=== PATIENT | female | born 1965 | race Caucasian/White ===

== ENCOUNTER 2017-08-15 15:53 | Emergency (ER) | payer MEDICAID ==
[2017-08-15 16:04] VITALS: TEMP 98.1
--- NOTE | 2017-08-15 16:13 | C.PDOC ---
History Of Present Illness 51 year old female presenting to the ED complaining of left sided back pain radiating to her hip and leg for one week. Patient states she has had similar symptoms in the past. She notes pain is worsened with movement, standing up, and walking. She reports she takes advil but only feels minimal relief. Patient denies any fall, injury, weakness, numbness, or tingling. Time Seen by Provider: 08/15/17 16:06 Chief Complaint (Nursing): Lower Extremity Problem/Injury History Per: Patient History/Exam Limitations: no limitations Onset/Duration Of Symptoms: Days Current Symptoms Are (Timing): Still Present Past Medical History Reviewed: Historical Data, Nursing Documentation, Vital Signs Vital Signs: Last Vital Signs Temp 98.1 F 08/15/17 16:02 Pulse 72 08/15/17 16:42 Resp 16 08/15/17 16:42 BP 131/72 08/15/17 16:42 Pulse Ox 98 08/15/17 16:42 - Medical History PMH: No Chronic Diseases Other Surgeries: Hx of surgeries Family History: States: No Known Family Hx - Social History Hx Tobacco Use: No Hx Alcohol Use: No Hx Substance Use: No - Immunization History Hx Tetanus Toxoid Vaccination: No Hx Influenza Vaccination: No Hx Pneumococcal Vaccination: No Review Of Systems Except As Marked, All Systems Reviewed And Found Negative. Musculoskeletal: Positive for: Back Pain (Left sided pain), Leg Pain (Left leg ) , Other (Left sided hip pain ) Neurological: Negative for: Weakness, Numbness Physical Exam - Physical Exam Appears: Non-toxic, No Acute Distress Skin: Normal Color, Warm Head: Atraumatic, Normacephalic Eye(s): bilateral: Normal Inspection Ear(s): Bilateral: Normal Neck: Supple Chest: Symmetrical Cardiovascular: Rhythm Regular Respiratory: Normal Breath Sounds Back: No CVA Tenderness, Other (Left paralumbar tenderness) Extremity: Normal ROM, Tenderness (Mild tenderness to left lateral thigh ), No Deformity, No Swelling Neurological/Psych: Oriented x3, Normal Speech Gait: Steady ED Course And Treatment O2 Sat by Pulse Oximetry: 100 (RA) Pulse Ox Interpretation: Normal Medical Decision Making Medical Decision Making: Impression: Sciatica Plan: Toradol 60mg IM Valium 5mg PO Re-Eval: On reassessment, patient is resting comfortably, with improvement of back pain. Patient remains afebrile, with no bony tenderness, extremity numbness or weakness, or abdominal pain. Patient is ambulatory in the emergency department with no signs of discomfort. Patient was advised to follow up with physician/clinic in 1-2 days. Disposition Counseled Patient/Family Regarding: Need For Followup, Rx Given - Disposition Referrals: [facility] [Outside] [facility] [Outside] Disposition: HOME/ ROUTINE Disposition Time: 16:12 Condition: STABLE Additional Instructions: You can apply heat to area Take Tylenol 500mg for any pain Take Ibuprofen as needed for pain every 6-8 hours, with food to not upset stomach Take Flexeril every 8 hours as needed for muscular pain and spasm, caution may cause drowsiness [place] [facility] dos veces al da [place] jayshree semana, evite beber alcohol con medicamentos Aplicar crema vaginal todas las noches petrona jayshree semana Vianney las duchas Aleksandra un seguimiento con eldridge gineclogo Las culturas tomarn de 2 a 3 [place] para obtener resultados. Alice rivera [phone]... Prescriptions: Cyclobenzaprine [Cyclobenzaprine HCl] 10 mg PO TID #21 tab Ibuprofen [Motrin] 600 mg PO Q8 #30 tab Instructions: Sciatica (DC) Forms: [facility] (Croatian) Print Language: URDU - POA Present On Arrival: None - Clinical Impression Clinical Impression: Sciatica
[2017-08-15 16:43] VITALS: BP 131/72; PULSE 72; RESP 16
[2017-08-15 17:41] VITALS: O2SAT 100
== END 2017-08-15 16:42 | disposition home or self-care (01) ==
LOC: C.ER 15:53
DX: M54.30 Sciatica, unspecified side (principal)
CPT/HCPCS: 96372; 99283; J1885